=== PATIENT | female | born 1965 ===

== ENCOUNTER 2019-12-14 17:19 | Emergency (ER) | payer SELFPAY ==
--- OUTSIDE RECORDS SUMMARY | 2020-01-23 14:26 | XMS REPORT | Continuity of Care Document ---
Author Organization Unknown Address Unknown Phone Unavailable Allergies There is no data. Medications There is no data. Problems There is no data. Procedures There is no data. Results There is no data. Encounters ACCT No. Visit Date/Time Discharge Status Pt. Type Provider Facility Loc./Unit Complaint [id number] 12/14/2019 17:20:00 020 17:53:00 DIS Emergency MARGARITA HITCHCOCK DO [facility]
== END 2019-12-14 17:53 | disposition left against medical advice (07) ==
LOC: ER 17:20
DX: R05 Cough (principal)